=== PATIENT | male | born 1980 | race Caucasian/White ===

== ENCOUNTER 2016-10-11 11:18 | Emergency (ER) | payer OTHER ==
[~2016-10-11] VITALS: Ht 172.7 cm; Wt 79.5 kg
[2016-10-11] MEDS ORDERED: ZOLO50TA PO (11:37)
[2016-10-11] MEDS ORDERED: CLON0.5T PO (11:37)
[2016-10-11] MEDS ORDERED: SILD25TA GT (11:37)
[2016-10-11] MEDS ORDERED: KETOROLAC 30 MG/ML VIAL (J1885) IV ONE (12:45)
--- NOTE | 2016-10-11 13:14 | REP ---
CHEST X-RAY: Two views. HISTORY: Trauma. FINDINGS: The lungs are well inflated and clear. The pleural angles are sharp. Heart size is normal. No significant bony abnormality is seen. EKG electrodes are seen. IMPRESSION: Negative chest x-ray. Signed by Lauri Valenzuela MD 10/11/2016 02:55 P
--- NOTE | 2016-10-11 13:14 | REP ---
THORACIC SPINE SERIES: Three views. HISTORY: Trauma. FINDINGS: Swimmers lateral view shows degenerative disc disease at C5-6 and C6-7. Thoracic vertebral body heights are preserved. No fracture or collapse is seen. Pedicles and posterior elements are intact. No paravertebral soft-tissue swelling is seen. IMPRESSION: Degenerative disc changes in the cervical spine. Otherwise negative thoracic spine radiographs. Signed by Lauri Valenzuela MD 10/11/2016 02:55 P
[2016-10-11 13:59] VITALS: O2SAT 98
[2016-10-11] MEDS ORDERED: ISOVUE-370 76% 100ML VIAL (Q9967) As Ordered ONE (14:16)
[2016-10-11] MEDS ORDERED: NORCOTAB PO (15:06)
[2016-10-11] MEDS ORDERED: NAPR500T PO (15:06)
--- NOTE | 2016-10-11 15:20 | REP ---
CT chest with IV contrast: History: Trauma. CT contrast dose: 75 mL of Isovue [address] findings: No mediastinal hematoma is seen. Thoracic aorta is enhanced homogeneously and is normal in course and caliber. No abnormalities seen in the pulmonary arterial tree. The lung rodriguez are clear. There is no evidence of pneumothorax, hemothorax or contusion. The liver and spleen are unremarkable. No adrenal lesion is seen. The gallbladder and the pancreas are unremarkable. The visualized portions of the kidneys enhance symmetrically. Bone window settings show no fracture. Impression: No significant abnormality. Signed by Lauri Valenzulea MD 10/11/2016 04:21 P
[2016-10-11 15:22] VITALS: BP 148/83
== END 2016-10-11 15:24 | disposition home or self-care (01) ==
LOC: M ED 11:18
DX: S29.011A Strain of muscle and tendon of front wall of thorax, initial encounter (principal); V48.0XXA Car driver injured in noncollision transport accident in nontraffic accident, initial encounter; Y92.9 Unspecified place or not applicable; Y93.9 Activity, unspecified; Y99.9 Unspecified external cause status; F43.10 Post-traumatic stress disorder, unspecified; M50.322 Other cervical disc degeneration at C5-C6 level; M50.323 Other cervical disc degeneration at C6-C7 level
CPT/HCPCS: 71020; 71260; 72072; 96374; 99284; J1885; Q9967

== ENCOUNTER 2017-02-21 12:09 | Emergency (ER) | payer OTHER ==
[2017-02-21] MEDS: CLINDAMYCIN 900 MG in APPROPRIATE DILUENT 1 EA IV (16:43)
[2017-02-21] MEDS: IBUPROFEN 800 MG TAB PO (16:43)
[2017-02-21 16:54] LABS: BASO # 0.1 10^3/uL (0.0-0.2); BASO % 0.5 % (0.0-1.0); EOS # 0.1 10^3/uL (0.0-0.50); EOS % 0.9 % (0.0-3.0); HEMATOCRIT 41.9 % (42.0-52.0); HEMOGLOBIN 14.7 g/dl (14.0-18.0); IMMATURE GRANULOCYTE % 0.3 % (0-0); LYMPH # 2.4 10^3/uL (1.5-4.5); LYMPH % 24.4 % (24.0-44.0); MEAN CORPUSCULAR HEMOGLOBIN 31.1 pg (27.0-33.0); MEAN CORPUSCULAR HGB CONC 35.1 g/dl (32.0-36.5); MEAN CORPUSCULAR VOLUME 88.6 fl (80.0-96.0); MONO # 0.8 10^3/uL (0.0-0.8); MONO % 7.7 % (0.0-5.0); NEUTROPHILS # 6.6 10^3/uL (1.8-7.7); NEUTROPHILS % 66.2 % (36.0-66.0); PLATELET COUNT, AUTOMATED 252 10^3/uL (150-450); RED BLOOD COUNT 4.73 10^6/uL (4.30-6.10); RED CELL DISTRIBUTION WIDTH 12.1 % (11.5-14.5)
[2017-02-21 17:15] LABS: ALBUMIN 3.6 GM/DL (3.2-5.2); ALBUMIN/GLOBULIN RATIO 1.06 (1.00-1.93); ALKALINE PHOSPHATASE 67 U/L (45-117); ALT/SGPT 19 U/L (12-78); ANION GAP 7 MEQ/L (8-16); AST/SGOT 14 U/L (7-37); BILIRUBIN,TOTAL 0.4 MG/DL (0.2-1.0); BLOOD UREA NITROGEN 18 MG/DL (7-18); CALCIUM LEVEL 8.8 MG/DL (8.5-10.1); CARBON DIOXIDE LEVEL 24 MEQ/L (21-32); CHLORIDE LEVEL 109 MEQ/L (98-107); CREATININE FOR GFR 0.89 MG/DL (0.70-1.30); ERYTHROCYTE SEDIMENTATION RATE 21 mm/hr (0-15); GLOMERULAR FILTRATION RATE > 60.0 (>60); GLUCOSE, FASTING 72 MG/DL (70-105); POTASSIUM SERUM 3.9 MEQ/L (3.5-5.1); SODIUM LEVEL 140 MEQ/L (136-145)
== END 2017-02-21 17:39 | disposition home or self-care (01) ==
LOC: M ED 12:09
DX: L03.011 Cellulitis of right finger (principal); F43.10 Post-traumatic stress disorder, unspecified; Z87.891 Personal history of nicotine dependence
CPT/HCPCS: 73140